=== PATIENT | female | born 1970 | race Caucasian/White ===

== ENCOUNTER → 2020-09-16 14:02 | Outpatient (CLI) | payer OTHER, SELFPAY ==
--- NOTE | 2020-09-16 14:08 | DI.US.S_ITS ---
PROCEDURE: US PELVIC COMPLETE INDICATIONS: PMB TECHNIQUE: Real-time scanning was performed of the pelvic organs, with image documentation. Additional endovaginal scanning was necessary due to incomplete visualization of the adnexal and endometrial structures by transabdominal scanning. COMPARISON: None. FINDINGS: Uterus: Uterus is normal in size at 6.2 x 2.9 x 4.3 cm. The endometrium measures 3 mm in combined thickness. Normal uterine echotexture. Ovaries: The bilateral ovaries were not visualized on this study. Other: No pathologic free abdominal or pelvic fluid. IMPRESSION: 1. Normal sonographic evaluation of the uterus. 2. The bilateral ovaries were not visualized on today's examination. No abnormal free fluid in the pelvis. Dictated by: Kapil Cano M.D. on 09/16/2020 at 14:55 Approved by: Kapil Cano M.D. on 09/16/2020 at 15:30
== END ==
PROVIDERS: Referring Provider Specialist; Visit Provider Specialist
DX: N95.0 Postmenopausal bleeding (principal)
CPT/HCPCS: 76830; 76856

== ENCOUNTER → 2021-12-23 14:22 | Outpatient (CLI) | payer OTHER, SELFPAY ==
--- NOTE | 2021-12-23 14:23 | DI.US.S_ITS ---
PROCEDURE: US PELVIC COMPLETE INDICATIONS: PMB TECHNIQUE: Real-time scanning was performed of the pelvic organs, with image documentation. Additional endovaginal scanning was necessary due to incomplete visualization of the adnexal and endometrial structures by transabdominal scanning. COMPARISON: [facility], US, US PELVIC COMPLETE, 09/16/2020, 14:14. FINDINGS: Uterus: Uterus is anteverted and normal in size at 7.8 x 2.9 x 4.9 cm. The myometrium is homogeneous. The endometrium measures 3.1 mm combined thickness. Ovaries: The right ovary measures 2.0 x 0.8 x 0.9 cm, with a calculated ovarian volume of 0.8 cc. The left ovary measures 1.5 x 0.9 x 0 point cm, with a calculated ovarian volume of 0.6 cc. The ovaries have a normal sonographic appearance. Less than 12 follicles can be seen in each ovary. No adnexal masses are seen. Other: No pathologic free abdominal or pelvic fluid. IMPRESSION: Unremarkable pelvic ultrasound in a postmenopausal patient. The endometrial complex is less than 4 mm in diameter which is the upper limits of normal with a history of postmenopausal bleeding. We strive to produce accurate, complete, and clear reports of imaging services. To assist us in improving patient care, this report was composed using standard report templates and voice recognition software. Therefore, it may contain abnormal punctuation, insertions and/or omissions. Occasional wrong-word or sound-alike substitutions may occur. Though we review the report and make efforts to correct it, we do recommend that the report be read carefully in proper context to recognize any text inaccuracies. Dictated by: Rosalina Abarca M.D. on 12/25/2021 at 9:57 Approved by: Rosalina Abarca M.D. on 12/25/2021 at 10:00
== END ==
PROVIDERS: PCP Registered Nurse; Referring Provider Specialist; Visit Provider Specialist
DX: N95.0 Postmenopausal bleeding (principal)
CPT/HCPCS: 76830; 76856